=== PATIENT | female | born 1990 | race Caucasian/White ===

== ENCOUNTER 2017-01-02 09:57 | Inpatient (IN) | payer OTHER ==
[~2017-01-02 09:57] MED LIST: KEPP10002 PO
[2017-01-02] MEDS ORDERED: SODIUM CHLORIDE 0.9% FLUSH 10 ML FLUSH IV FLUSH PRN (13:45)
[2017-01-02] MEDS ORDERED: MAGNESIUM HYDROXIDE SUSP 30 ML CUP PO PRN (13:45)
[2017-01-02] MEDS ORDERED: ACETAMINOPHEN 325 MG TAB PO PRN (13:45)
[2017-01-02] MEDS ORDERED: NALOXONE HCL 0.4 MG/ML AMP IV PUSH PRN (13:45)
[2017-01-02] MEDS ORDERED: MORPHINE SULFATE 2 MG/ML INJ IV PUSH PRN (13:45)
--- NOTE | 2017-01-02 14:52 | PD.CONS ---
HPI History of Present Illness This is a 26 year old female with hx seizures, gastroparesis who presented with abd pain. Moving makes the pain worse. 1x episode n/v. No diarrhea or constipation or hx diverticulitis. No blood in vomit or stool, no fever. She has gastroparesis diagnosed by [facility] within the last year. SHe has had an EGD earlier this year, she cannot recall exact findings but it led to ordering of a [facility]. Never had colonoscopy. (Krysta Pryor) PFSH Past Medical History seizures Past Surgical History excision skin ca (Krysta Pryor) Coded Allergies: naproxen (Verified Allergy, Severe, SWELLING, 01/02/17) sumatriptan (Verified Allergy, Severe, SWELLING, 01/02/17) Sulfa (Sulfonamide Antibiotics) (Unverified Allergy, Unknown, Anaphylaxis , 01/02/17) Family History gastric ca Social History rare ETOH no tobacco use or illicit drug use (Krysta Pryor) Review of Systems Constitutional: DENIES: Fever Eyes: DENIES: Blurred vision Ears, nose, mouth, throat: DENIES: Hearing loss Respiratory: DENIES: Hemoptysis Cardiovascular: DENIES: Chest pain Gastrointestinal: COMPLAINS OF: Abdominal pain, Nausea, Vomiting, DENIES: Black stools, Bloody stools, Constipation, Diarrhea Genitourinary: DENIES: Hematuria Musculoskeletal: DENIES: Joint Swelling Integumentary: DENIES: Pruritus Hematologic/lymphatic: DENIES: Bruising Neurologic: DENIES: Abnormal gait Psychiatric: DENIES: Confusion (Krysta Pryor) GI Exam Physical Examination HEENT: PERRL; normocephalic; atraumatic; no jaundice. CHEST: CTA. CARDIAC: RRR ABDOMEN: Soft, nondistended, lower quadrant TTP; no hepatosplenomegaly; bowel sounds are present in all four quadrants. EXTREMITIES: No clubbing, cyanosis, or edema. SKIN: Normal; no rash; no jaundice. REMOTE SENSING ANALYST: No focal deficits; alert and oriented times three. (Krysta Pryor) Assessment and Plan Plan ASSESSMENT - abd pain - diverticulitis. CT showing cecal diverticulitis. PLAN - flagyl, levaquin - pain mgmt - IVF - NPO for now - further recs to follow This pt seen by myself and Dr Higgins and this note is written on his behalf (Krysta Pryor) Plan Patient was seen and examined, agree with above-noted and plan, having significant pain, diverticulitis and CT scan, we'll plan on antibiotics and pain management, she will need colonoscopy as an outpatient Patient also has history of gastroparesis, questionable etiology, recommend small meals when clear to eat since she is nothing by mouth for now, follow up with her ring conductor as an outpatient (Elana Higgins MD) Krysta Pryor Jan 02, 2017 14:52 Elana Higgins MD Jan 02, 2017 19:30
[2017-01-02] MEDS: SODIUM CHLOR 0.9% 1000 ML INJ 1,000 ML IV SCH (15:16)
--- NOTE | 2017-01-02 15:35 | HHI.HP ---
HPI Service [facility] Hospitalists Primary Care Physician Chava Napoles D.O. Admission Diagnosis Chief Complaint: abdominal pain Travel History International Travel<30 Days: No Contact w/Intl Traveler <30 Da: No Traveled to Known Affected Are: No History of Present Illness This is a 26 year old female with a past medical history which includes seizure disorder and gastroparesis. Patient presented to [facility] ER for evaluation of severe right lower quadrant abdominal pain that began around 5:00 this morning (01/02) patient states the pain radiates around to her back. Patient's vomited one time, there was no blood or black coffee ground appearance to the vomitions material. Patient states she had a bowel movement with no relief of her abdominal pain. Patient reported constant pain 8 out of 10. Patient endorses abdomen bloating and distention. Her last menstrual period was December 13, 2016. Patient denies urinary symptoms or vaginal discharge. Patient has recent diagnosis of gastroparesis by [facility] by GI physician in [place]. She had an EGD earlier this year, never had colonoscopy. Review of Systems Constitutional: DENIES: Fatigue, Fever, Chills Eyes: DENIES: Blurred vision, Diplopia, Vision loss Respiratory: DENIES: Cough, Sputum production, Shortness of breath Cardiovascular: DENIES: Chest pain, Palpitations, Dyspnea on Exertion, Lower Extremity Edema Gastrointestinal: COMPLAINS OF: Abdominal pain, Nausea, Vomiting, DENIES: Constipation, Diarrhea Neurologic: COMPLAINS OF: Seizures (history), DENIES: Abnormal gait, Headache, Localized weakness Psychiatric: DENIES: Anxiety, Confusion, Depression Past Family Social History Past Medical History seizure disorder gastroparesis Past Surgical History excision skin ca Reported Medications Keppra (Levetiracetam) 1,000 Mg Tab 1,000 Mg PO BID Allergies: Coded Allergies: naproxen (Verified Allergy, Severe, SWELLING, 01/02/17) sumatriptan (Verified Allergy, Severe, SWELLING, 01/02/17) Sulfa (Sulfonamide Antibiotics) (Unverified Allergy, Unknown, Anaphylaxis , 01/02/17) Active Ordered Medications Current Medications Medications (Trade) Dose Ordered Sig/Kobi Route Start Time Stop Time Status Last Admin Sodium Chloride 1,000 ml @ 75 mls/hr [id number] IV 01/02/17 13:37 01/02/17 15:16 (NS Flush) 2 ml UNSCH PRN IV FLUSH 01/02/17 13:45 (NS Flush) 2 ml BID IV FLUSH 01/02/17 21:00 (Tylenol) 650 mg Q4H PRN PO 01/02/17 13:45 (Zofran Inj) 4 mg Q6H PRN IVP 01/02/17 13:45 (Narcan Inj) 0.4 mg UNSCH PRN IV PUSH 01/02/17 13:45 (Ilana-Colace) 1 tab BID PO 01/02/17 21:00 (Milk Of Magnesia Liq) 30 ml Q12H PRN PO 01/02/17 13:45 ([place] 5-325 Mg) 1 tab Q4H PRN PO 01/02/17 13:45 (Morphine Inj) 2 mg Q4H PRN IV PUSH 01/02/17 13:45 01/02/17 15:05 (Keppra) 1,000 mg BID PO 01/02/17 21:00 Levofloxacin/ Dextrose 150 ml @ 100 mls/hr Q24H IV 01/02/17 17:00 Metronidazole 100 ml @ 100 mls/hr Q8H IV 01/02/17 17:00 Family History gastric ca Social History rare ETOH no tobacco use or illicit drug use Physical Exam Physical Exam GENERAL: This is a well-nourished, well-developed patient, in no apparent distress. SKIN: No rashes, ecchymoses or lesions. Cool and dry. HEAD: Atraumatic. Normocephalic. No temporal or scalp tenderness. EYES: Extraocular motions intact. No scleral icterus. No injection or drainage. ENT: Nose without bleeding, purulent drainage or septal hematoma. Throat without erythema, tonsillar hypertrophy or exudate. Uvula midline. Airway patent. NECK: Trachea midline. No JVD or lymphadenopathy. Supple, nontender, no meningeal signs. CARDIOVASCULAR: Regular rate and rhythm RESPIRATORY: Clear to auscultation. Breath sounds equal bilaterally. GASTROINTESTINAL: Abdomen soft, nondistended. Normoactive bowel sounds. Tender to palpation right lower quadrant. MUSCULOSKELETAL: Extremities without clubbing, cyanosis, or edema. No joint tenderness, effusion, or edema noted. No calf tenderness. Negative Homans sign bilaterally. NEUROLOGICAL: Awake and alert. No focal deficits noted. Motor and sensory grossly within normal limits. Five out of 5 muscle strength in all muscle groups. Normal speech. Caprini VTE Risk Assessment Caprini VTE Risk Assessment: No/Low Risk (score <= 1) Caprini Risk Assessment Model Point Value = 1 Point Value = 2 Point Value = 3 Point Value = 5 Age 41-60 Minor surgery BMI > 25 kg/m2 Swollen legs Varicose veins or History of unexplained or recurrent spontaneous Oral contraceptives or hormone replacement Sepsis (< 1 month) Serious lung disease, including pneumonia (< 1 month) Abnormal pulmonary function Acute myocardial infarction Congestive heart failure (< 1 month) History of inflammatory bowel disease Medical patient at bed rest Age 61-74 Arthroscopic surgery Major open surgery (> 45 min) Laparoscopic surgery (> 45 min) Malignancy Confined to bed (> 72 hours) Immobilizing plaster cast Central venous access Age >= 75 History of VTE Family history of VTE Factor V Leiden Prothrombin [id number] Lupus anticoagulant Anticardiolipin antibodies Elevated serum homocysteine Heparin-induced thrombocytopenia Other congenital or acquired thrombophilia Stroke (< 1 month) Elective arthroplasty Hip, pelvis, or leg fracture Acute spinal cord injury (< 1 month) Prophylaxis Regimen Total Risk Factor Score Risk Level Prophylaxis Regimen 0-1 Low Early ambulation 2 Moderate Order ONE of the following: *Sequential Compression Device (SCD) *Heparin 5000 units SQ BID 3-4 Higher Order ONE of the following medications: *Heparin 5000 units SQ TID *Enoxaparin/Lovenox 40 mg SQ daily (WT < 150 kg, CrCl > 30 mL/min) *Enoxaparin/Lovenox 30 mg SQ daily (WT < 150 kg, CrCl > 10-29 mL/min) *Enoxaparin/Lovenox 30 mg SQ BID (WT < 150 kg, CrCl > 30 mL/min) AND/OR *Sequential Compression Device (SCD) 5 or more Highest Order ONE of the following medications: *Heparin 5000 units SQ TID (Preferred with Epidurals) *Enoxaparin/Lovenox 40 mg SQ daily (WT < 150 kg, CrCl > 30 mL/min) *Enoxaparin/Lovenox 30 mg SQ daily (WT < 150 kg, CrCl > 10-29 mL/min) *Enoxaparin/Lovenox 30 mg SQ BID (WT < 150 kg, CrCl > 30 mL/min) AND *Sequential Compression Device (SCD) Assessment and Plan Problem List: (1) Cecal diverticulitis ICD Codes: K57.32 - Diverticulitis of large intestine without perforation or abscess without bleeding Plan: This is a 26 year old female with a past medical history which includes seizure disorder and gastroparesis. Patient presented to [facility] ER for evaluation of severe right lower quadrant abdominal pain vomiting x1. Abdominal pain Cecal diverticulitis NPO, bowel rest Flagyl and Levaquin IV consult GI Morphine IV and norco PO as needed for pain repeat labs in AM Seizure disorder continue home keppra 1000mg PO BID DVT prophylaxis with SCDs (2) Abdominal pain ICD Codes: R10.9 - Unspecified abdominal pain (3) Seizure disorder ICD Codes: G40.909 - Epilepsy, unspecified, not intractable, without status epilepticus Assessment and Plan Patient examined. Assessment and plan formulated with Halley Partida PA-C. I agree with the above. Halley Partida Jan 02, 2017 15:35 Deondre Weston DO Jan 06, 2017 22:13
[2017-01-02] MEDS ORDERED: metroNIDAZOLE 500 MG INJ 100 ML IV SCH (16:00)
[2017-01-02 16:10] VITALS: BP 101/56; PULSE 84; RESP 20; TEMP 98.2; O2SAT 97
[2017-01-02] MEDS: metroNIDAZOLE 500 MG INJ 100 ML IV SCH (16:44)
[2017-01-02] MEDS ORDERED: LEVOFLOXACIN 750 MG PREMIX INJ 150 ML IV SCH (17:00)
[2017-01-02 19:53] VITALS: BP 112/55; PULSE 81; RESP 19; TEMP 98.8; O2SAT 99
[2017-01-02] MEDS: HYDROmorphone HCL PF 0.5 MG/0.5 ML SYRINGE IV PUSH PRN (19:55)
[2017-01-02] MEDS: SODIUM CHLORIDE 0.9% FLUSH 10 ML FLUSH IV FLUSH SCH (21:00)
[2017-01-02] MEDS ORDERED: DOCUSATE SODIUM 50 MG/SENNA 8.6 MG TAB PO SCH (21:00)
[2017-01-02] MEDS: levETIRAcetam 500 MG TAB PO SCH (22:28)
[2017-01-02] MEDS: DOCUSATE SODIUM 100 MG CAP PO SCH (22:28)
[2017-01-03] VITALS (7 sets, daily range): BP systolic 88–126; BP diastolic 53–83; PULSE 66–98; RESP 18–24; TEMP 98.1–99.5; O2SAT 97–100
[2017-01-03] MEDS: HYDROmorphone HCL PF 0.5 MG/0.5 ML SYRINGE IV PUSH PRN ×4 (00:32→20:08)
[2017-01-03] MEDS: metroNIDAZOLE 500 MG INJ 100 ML IV SCH ×3 (00:34→17:25)
[2017-01-03] MEDS: SODIUM CHLOR 0.9% 1000 ML INJ 1,000 ML IV SCH ×2 (03:14→20:06)
[2017-01-03] MEDS: SODIUM CHLORIDE 0.9% FLUSH 10 ML FLUSH IV FLUSH SCH ×2 (08:20→20:11)
[2017-01-03] MEDS: DOCUSATE SODIUM 100 MG CAP PO SCH ×2 (08:20→20:06)
[2017-01-03] MEDS: LEVOFLOXACIN 750 MG PREMIX INJ 150 ML IV SCH (08:20)
[2017-01-03] MEDS: levETIRAcetam 500 MG TAB PO SCH ×2 (08:20→20:07)
[2017-01-03] MEDS: ONDANSETRON HCL 4 MG/2 ML VIAL IVP PRN (08:25)
[2017-01-03 08:39] LABS: BASOPHIL # 0.1 TH/MM3 (0-0.2); BASOPHIL % 0.4 % (0.0-2.0); EOSINOPHIL # 0.1 TH/MM3 (0-0.4); EOSINOPHIL % 0.8 % (0.0-4.0); HEMATOCRIT 36.9 % (35.0-46.0); HEMO FLAGS DIFF FINAL; LYMPH % 7.3 % (9.0-44.0); LYMPHOCYTE # 1.1 TH/MM3 (1.0-4.8); MEAN CELL VOLUME 86.7 FL (80.0-100.0); MEAN CORPUSCULAR HEMOGLOBIN 29.7 PG (27.0-34.0); MEAN CORPUSCULAR HGB CONC 34.3 % (32.0-36.0); MONO % 4.6 % (0.0-8.0); NEUT % 86.9 % (16.0-70.0); PLATELET COUNT 210 TH/MM3 (150-450); RED BLOOD COUNT 4.26 MIL/MM3 (4.00-5.30); RED CELL DISTRIBUTION WIDTH 12.7 % (11.6-17.2); WHITE BLOOD COUNT 14.9 TH/MM3 (4.0-11.0)
[2017-01-03 09:40] LABS: POTASSIUM 3.5 MEQ/L (3.5-5.1)
[2017-01-03 09:44] LABS: BICARBONATE 18.9 MEQ/L (21.0-32.0)
[2017-01-03] MEDS: ACETAMINOPHEN/HYDROcodone 325 MG/5 MG TAB PO PRN ×2 (11:05→22:59)
--- NOTE | 2017-01-03 12:31 | HHI.GIFU ---
Subjective Remarks Feeling slight improvement from yesterday, no N/V Objective Vitals I&O Vital Signs Date Time Temp Pulse Resp B/P (MAP) Pulse Ox O2 Delivery O2 Flow Rate FiO2 01/03/17 11:40 98.7 95 22 88/53 (65) 98 01/03/17 08:00 98.3 66 24 126/83 (97) 97 01/03/17 07:54 99.5 97 22 94/54 (67) 97 01/03/17 05:04 98.8 98 18 106/58 (74) 98 01/03/17 00:21 98.1 96 18 102/57 (72) 97 01/02/17 20:28 16 01/02/17 19:53 98.8 81 19 112/55 (74) 99 01/02/17 16:10 98.2 84 20 101/56 (71) 97 01/02/17 16:08 20 I/O 01/02/17 01/02/17 01/02/17 01/03/17 01/03/17 01/03/17 07:00 15:00 23:00 07:00 15:00 23:00 # Voids 1 Laboratory Laboratory Tests Test 01/03/17 07:20 01/03/17 07:28 Blood Urea Nitrogen 9 Creatinine 0.57 Random Glucose 62 Calcium Level 8.4 Sodium Level 137 Potassium Level 3.5 Chloride Level 105 Carbon Dioxide Level 18.9 Anion Gap 13 Estimat Glomerular Filtration Rate 129 White Blood Count 14.9 Red Blood Count 4.26 Hemoglobin 12.6 Hematocrit 36.9 Mean Corpuscular Volume 86.7 Mean Corpuscular Hemoglobin 29.7 Mean Corpuscular Hemoglobin Concent 34.3 Red Cell Distribution Width 12.7 Platelet Count 210 Mean Platelet Volume 9.4 Neutrophils (%) (Auto) 86.9 Lymphocytes (%) (Auto) 7.3 Monocytes (%) (Auto) 4.6 Eosinophils (%) (Auto) 0.8 Basophils (%) (Auto) 0.4 Neutrophils # (Auto) 13.0 Lymphocytes # (Auto) 1.1 Monocytes # (Auto) 0.7 Eosinophils # (Auto) 0.1 Basophils # (Auto) 0.1 CBC Comment DIFF FINAL Differential Comment Physical Exam HEENT: Pupils round and reactive to light; normocephalic; atraumatic; no jaundice. Throat is clear. NECK: Neck is supple, no JVD, no lymphadenopathy. CHEST: Chest is clear to auscultation and percussion. CARDIAC: Regular rate and rhythm with no murmur gallop or rubs. ABDOMEN: Tenderness all over but more prominent at RLQ area, no rigidity or rebound. EXTREMITIES: No clubbing, cyanosis, or edema. SKIN: Normal; no rash; no jaundice. LAG SCREWER: No focal deficits; alert and oriented times three. Assessment and Plan Plan ASSESSMENT - Abd pain - diverticulitis. CT showing cecal diverticulitis, slight improvement on IV Antibiotics PLAN - Continue - Clear liquid dietflagyl, levaquin - Pain mgmt - CBC/diff - Further recommendations to follow. Elza Malave MD Jan 03, 2017 12:31
--- NOTE | 2017-01-03 16:16 | HHI.PR ---
Subjective Remarks Pt c/o continued abdominal pain unrelieved after Dilaudid 0.5mg Objective Vitals Vital Signs Date Time Temp Pulse Resp B/P (MAP) Pulse Ox O2 Delivery O2 Flow Rate FiO2 01/03/17 11:40 98.7 95 22 88/53 (65) 98 01/03/17 08:00 98.3 66 24 126/83 (97) 97 01/03/17 07:54 99.5 97 22 94/54 (67) 97 01/03/17 05:04 98.8 98 18 106/58 (74) 98 01/03/17 00:21 98.1 96 18 102/57 (72) 97 01/02/17 20:28 16 01/02/17 19:53 98.8 81 19 112/55 (74) 99 Result Diagram: 01/03/1728 01/03/17 0720 Objective Remarks GENERAL: uncomfortable d/t abdominal pain CARDIOVASCULAR: Regular rate and rhythm without murmurs, gallops, or rubs. RESPIRATORY: Clear to auscultation. Breath sounds equal bilaterally. No wheezes , rales, or rhonchi. GASTROINTESTINAL: +BS x 4, pain on palpation at RLQ MUSCULOSKELETAL: Extremities without clubbing, cyanosis, or edema. NEURO: Alert & Oriented x4 to person, place, time, situation. Moves all ext x4 A/P Problem List: (1) Cecal diverticulitis ICD Codes: K57.32 - Diverticulitis of large intestine without perforation or abscess without bleeding Plan: - comgmt with GI - pt admitted thru the [place] ER. - Pt awoke on morning of presentation with severe RLQ abdominal pain, worse with movements, and driving over bumps - pt states h/o gastroparesis - CT abd/pelvis (01/01) --> cecal diverticulitis - Case reviewed with radiology department (01/03). - cecal diverticulitis - does NOT appear to have abnormal appendix - clear diet - continue Flagyl and Levaquin IV - Case d/w General Surgery, Dr. Saucedo. He will consult. - norco/diluadid prn pain - repeat labs in AM - supportive care - DVT prophylaxis (2) Abdominal pain ICD Codes: R10.9 - Unspecified abdominal pain Plan: - see above (3) Seizure disorder ICD Codes: G40.909 - Epilepsy, unspecified, not intractable, without status epilepticus Plan: - continue Deondre Degroot DO Jan 03, 2017 16:15
[2017-01-03] MEDS ORDERED: HYDROmorphone HCL PF 1 MG/ML VIAL IV PUSH ONE (16:30)
[2017-01-04] VITALS (7 sets, daily range): BP systolic 84–108; BP diastolic 49–70; PULSE 62–99; RESP 16–18; TEMP 97.3–100.8; O2SAT 97–100
[2017-01-04] MEDS: metroNIDAZOLE 500 MG INJ 100 ML IV SCH ×3 (00:33→16:25)
[2017-01-04] MEDS: HYDROmorphone HCL PF 0.5 MG/0.5 ML SYRINGE IV PUSH PRN ×6 (00:33→21:12)
[2017-01-04] MEDS: ONDANSETRON HCL 4 MG/2 ML VIAL IVP PRN ×2 (04:44→10:55)
[2017-01-04 04:47] LABS: BICARBONATE 23.8 MEQ/L (21.0-32.0)
[2017-01-04 05:05] LABS: HEMATOCRIT 35.1 % (35.0-46.0); MEAN CELL VOLUME 86.6 FL (80.0-100.0); MEAN CORPUSCULAR HEMOGLOBIN 30.4 PG (27.0-34.0); MEAN CORPUSCULAR HGB CONC 35.2 % (32.0-36.0); PLATELET COUNT 199 TH/MM3 (150-450); RED BLOOD COUNT 4.05 MIL/MM3 (4.00-5.30); RED CELL DISTRIBUTION WIDTH 12.5 % (11.6-17.2); REVIEW FLAG FINAL; WHITE BLOOD COUNT 15.2 TH/MM3 (4.0-11.0)
[2017-01-04] MEDS: SODIUM CHLOR 0.9% 1000 ML INJ 1,000 ML IV SCH ×2 (05:37→15:51)
[2017-01-04] MEDS: LEVOFLOXACIN 750 MG PREMIX INJ 150 ML IV SCH (08:55)
[2017-01-04] MEDS: SODIUM CHLORIDE 0.9% FLUSH 10 ML FLUSH IV FLUSH SCH ×3 (08:56→21:00)
[2017-01-04] MEDS: levETIRAcetam 500 MG TAB PO SCH ×2 (08:56→21:08)
[2017-01-04] MEDS: DOCUSATE SODIUM 100 MG CAP PO SCH ×2 (08:56→21:08)
[2017-01-04] MEDS ORDERED: BUPIVACAINE/EPINEPHRINE 0.25% PF 10 ML VIAL ONE (13:30)
[2017-01-04] MEDS ORDERED: ACETAMINOPHEN/HYDROcodone 325 MG/5 MG TAB PO PRN (14:30)
[2017-01-04] MEDS ORDERED: ONDANSETRON HCL 4 MG/2 ML VIAL IV PUSH PRN (14:30)
[2017-01-04] MEDS ORDERED: Post-op Orders (for Pharmacy) MISC XX ONE (14:30)
[2017-01-04] MEDS ORDERED: MAGNESIUM HYDROXIDE SUSP 30 ML CUP PO PRN (14:30)
[2017-01-04] MEDS ORDERED: SODIUM CHLORIDE 0.9% FLUSH 10 ML FLUSH IV FLUSH PRN (14:30)
[2017-01-04] MEDS ORDERED: MORPHINE SULFATE 4 MG/ML INJ IV PUSH PRN (14:30)
[2017-01-04] MEDS ORDERED: metroNIDAZOLE 500 MG INJ 100 ML IV SCH (14:30)
[2017-01-04] MEDS ORDERED: DO NOT ADM ANY ANTICOAGULANT DRUGS PRN (14:43)
[2017-01-04] MEDS ORDERED: *HYDROmorphone PF 1 MG VIAL PERIprocedural Use ONLY ONE (15:01)
--- NOTE | 2017-01-04 15:28 | MB ---
cc: [facility] DATE OF CONSULTATION: 01/04/2017. REASON FOR CONSULTATION: Questionable ruptured appendix. HISTORY OF PRESENT ILLNESS: This is a 26-year-old patient with history of seizure disorder who presented to the [facility] with a complaint of abdominal pain. The pain was located in the right lower quadrant. The patient states the pain started in that region and persisted in that region. She had a CT scan at that institution which revealed inflammation around the cecum. She was transferred to [facility] for further management. The patient was felt to be getting worse on abdominal exam and surgical consult was requested. The patient states the pain is worse today. She states she vomited on the day prior. She has had no change in bowel habits. She is passing gas. No urinary symptoms. No fevers or chills. PAST MEDICAL HISTORY: Her past medical history is significant for the above as well as: 1. Gastroparesis. ALLERGIES: 1. NAPROXEN. 2. SUMATRIPTAN. 3. SULF. SOCIAL HISTORY: She does not smoke. She drinks alcohol occasionally. FAMILY HISTORY: Noncontributory. REVIEW OF SYSTEMS: Review of systems significant for above. All other 10-point review negative. PHYSICAL EXAMINATION: GENERAL: The patient is laying in bed in distress secondary to pain. HEAD, EYES, EARS, NOSE, THROAT: Her pupils are equal and reactive. NECK: Trachea is midline. LUNGS: Respirations clear. CARDIOVASCULAR: Regular. GASTROINTESTINAL: Soft, positive tenderness in the lower abdomen. MUSCULOSKELETAL: No deformities. NEUROLOGIC: Nonfocal. LABORATORY STUDIES: The patient's white blood cell count is 14.9. ASSESSMENT: This is a patient with findings diverticulitis of the cecum. RECOMMENDATIONS / PLAN: The patient is currently on IV antibiotics. Will continue course of therapy. If the patient has not shown any improvement, will take her to the operating room in the a.m. for laparoscopy to evaluate for the masking pathology. Will keep the patient NPO. MD MARIELA Simons/ORACIO /2:42 PM /3:22 PM
[2017-01-04] MEDS: D5-NS + KCL 20 MEQ INJ 1,000 ML IV SCH (15:30)
--- NOTE | 2017-01-04 15:48 | HHI.GIFU ---
Subjective Remarks Resting in bed. Reports continued abdominal discomfort. (Ivonne Manning) Objective Vitals I&O Vital Signs Date Time Temp Pulse Resp B/P (MAP) Pulse Ox O2 Delivery O2 Flow Rate FiO2 01/04/17 15:15 80 12 105/60 (75) 99 Nasal Cannula 2 01/04/17 15:00 96 16 106/60 (75) 100 Nasal Cannula 2 01/04/17 14:45 100 14 109/57 (74) 100 Nasal Cannula 2 01/04/17 14:41 98.4 111 14 114/66 (82) 100 Nasal Cannula 2 01/04/17 12:00 98.1 99 16 94/53 (67) 99 01/04/17 08:00 98.5 99 17 98/56 (70) 97 01/04/17 04:53 100.4 99 18 100/60 (73) 100 01/04/17 00:49 100.8 99 18 108/70 (83) 99 01/03/17 20:45 14 01/03/17 20:24 98.7 93 18 102/55 (71) 99 01/03/17 16:29 98.9 84 24 117/65 (82) 100 I/O 01/03/17 01/03/17 01/03/17 01/04/17 01/04/17 01/04/17 07:00 15:00 23:00 07:00 15:00 23:00 Intake Total 3400 ml 100 ml 1950 ml Output Total 1200 ml 400 ml Balance 2200 ml 100 ml 1550 ml Intake Oral 750 ml IV Total 2650 ml 100 ml 1250 ml Other 700 ml Output Urine Total 1200 ml 400 ml Other 0 ml # Voids 1 2 Laboratory Laboratory Tests Test 01/04/17 03:23 White Blood Count 15.2 Red Blood Count 4.05 Hemoglobin 12.3 Hematocrit 35.1 Mean Corpuscular Volume 86.6 Mean Corpuscular Hemoglobin 30.4 Mean Corpuscular Hemoglobin Concent 35.2 Red Cell Distribution Width 12.5 Platelet Count 199 Mean Platelet Volume 9.4 Blood Urea Nitrogen 8 Creatinine 0.53 Random Glucose 69 Calcium Level 8.2 Sodium Level 139 Potassium Level 4.0 Chloride Level 106 Carbon Dioxide Level 23.8 Anion Gap 9 Estimat Glomerular Filtration Rate 141 Physical Exam HEENT: Normocephalic; atraumatic; no jaundice. NECK: Neck is supple CHEST: Chest is clear to auscultation and percussion. CARDIAC: RRR ABDOMEN: Tenderness all over but more prominent at RLQ area, no rigidity or rebound. EXTREMITIES: No clubbing, cyanosis, or edema. SKIN: Normal; no rash; no jaundice. ELECTRONIC COURT RECORDER: No focal deficits; alert and oriented times three. (Ivonne Manning) Assessment and Plan Plan ASSESSMENT - Cecal Diverticulitis, right lower quadrant abdominal pain. WBC 15.2. Afebrile. CT Abdomen/Pelvis (01/02/17)--1. The patient's right lower quadrant pain is caused by a mild cecal diverticulitis. There is a 3 cm diverticulum arising from the cecum which demonstrates mild inflammation. 2. Trace free fluid in the pelvis could be physiologic or could be related to the inflammatory process. 3. Stable 2 mm nonobstructing left renal stone.. Patient reports history of gastropareses. GS consulted for evaluation of questionable ruptured appendix, who states if patient does not show any improvement will take her to OR in a.m. for laparoscopy to evaluate. Zosyn, Levaquin PLAN - NPO - Continue IV Zosyn, Levaquin - Pain management - Monitor labs - GS following - Supportive care - Further recommendations to follow based on the results of above Patient seen and examined by Dr. Malave and myself and this note is written on his behalf. (Ivonne Manning) Physician Comments Minimal improvement and for surgical treatment today. Will sign off for now, please notify us if needed. (Elza Malave MD) Ivonne Manning Jan 04, 2017 15:48 Elza Malave MD Jan 04, 2017 23:16
[2017-01-04] MEDS: PIPERACIL-TAZO 3.375 GM PREMIX 50 ML IV SCH ×2 (16:25→21:08)
--- NOTE | 2017-01-04 16:27 | HHI.PR ---
Subjective Remarks Pt comfortable with pain medications. Objective Vitals Vital Signs Date Time Temp Pulse Resp B/P (MAP) Pulse Ox O2 Delivery O2 Flow Rate FiO2 01/04/17 15:30 98.5 85 16 100/58 (72) 96 Room Air 01/04/17 15:15 80 12 105/60 (75) 99 Nasal Cannula 2 01/04/17 15:00 96 16 106/60 (75) 100 Nasal Cannula 2 01/04/17 14:45 100 14 109/57 (74) 100 Nasal Cannula 2 01/04/17 14:41 98.4 111 14 114/66 (82) 100 Nasal Cannula 2 01/04/17 12:00 98.1 99 16 94/53 (67) 99 01/04/17 08:00 98.5 99 17 98/56 (70) 97 01/04/17 04:53 100.4 99 18 100/60 (73) 100 01/04/17 00:49 100.8 99 18 108/70 (83) 99 01/03/17 20:45 14 01/03/17 20:24 98.7 93 18 102/55 (71) 99 01/03/17 16:29 98.9 84 24 117/65 (82) 100 01/04/17 01/04/17 01/05/17 15:00 23:00 07:00 Intake Total 1950 ml 100 ml Output Total 400 ml 125 ml Balance 1550 ml -25 ml IV Total 1250 ml 100 ml Other 700 ml Output Urine Total 400 ml 125 ml Other 0 ml Result Diagram: 01/04/1732201/04/17 0323 Objective Remarks GENERAL: NAD CARDIOVASCULAR: Regular rate and rhythm without murmurs, gallops, or rubs. RESPIRATORY: Clear to auscultation. Breath sounds equal bilaterally. No wheezes , rales, or rhonchi. GASTROINTESTINAL: +BS x 4, pain on palpation at RLQ MUSCULOSKELETAL: Extremities without clubbing, cyanosis, or edema. NEURO: Alert & Oriented x4 to person, place, time, situation. Moves all ext x4 A/P Problem List: (1) Cecal diverticulitis ICD Codes: K57.32 - Diverticulitis of large intestine without perforation or abscess without bleeding Plan: - comgmt with GI - pt admitted thru the [place] ER. - Pt awoke on morning of presentation with severe RLQ abdominal pain, worse with movements, and driving over bumps - pt states h/o gastroparesis - CT abd/pelvis (01/01) --> cecal diverticulitis - Case reviewed with radiology department (01/03). - cecal diverticulitis - does NOT appear to have abnormal appendix - NPO - continue Flagyl and Levaquin IV - norco/diluadid prn pain - Pt underwent exploratory laparotomy with Dr. Saucedo () - no appendicitis - cecal diverticulitis - continue abx and pain mgmt as above - supportive care - DVT prophylaxis (2) Abdominal pain ICD Codes: R10.9 - Unspecified abdominal pain Plan: - see above (3) Seizure disorder ICD Codes: G40.909 - Epilepsy, unspecified, not intractable, without status epilepticus Plan: - continue Deondre Degroot DO Jan 04, 2017 16:27
--- NOTE | 2017-01-04 17:38 | MP ---
cc: FRED BLANC DATE OF SURGERY: 01/04/2017. PREOPERATIVE DIAGNOSIS: Questionable of Meckel's diverticulum versus ruptured appendix. POSTOPERATIVE DIAGNOSIS: Cecal diverticulitis. OPERATIVE PROCEDURE PERFORMED: Diagnostic laparoscopy. SURGEON: Fred Blanc MD. ANESTHESIA: General endotracheal anesthesia. ESTIMATED BLOOD LOSS: Scant. FINDINGS: Inflammation around the medial aspect of the base of the cecum. SPECIMENS: None. COMPLICATIONS: None. DESCRIPTION OF THE PROCEDURE IN DETAIL: The patient was brought to the operating room and placed on the operating table in the supine position. Bilateral sequential inflation devices were placed on the lower extremities. General anesthesia instituted. Taylor catheter placed. The abdomen was prepped and draped sterilely. A point in the left upper quadrant was anesthetized with 0.25% Marcaine with epinephrine. Skin incision was made. A 5 mm OptiVu port was placed under direct vision and a pneumoperitoneum created. Under direct vision, a 5 mm right upper quadrant and a 5 mm left lower quadrant port was placed. Prior to the placement of all ports, the skin and peritoneum were anesthetized with 0.25% Marcaine with epinephrine. The patient was placed in Trendelenburg position with the right side up. The pelvis was inspected. There was inflammation around the base of the cecum on the medial aspect. The appendix was visualized. There was no evidence of appendicitis. No evidence of abscess in the abdominal cavity. No evidence of necrosis or gangrene. At this point, the operation was terminated. The carbon dioxide was released and all ports were removed. All skin incisions were closed with 4-0 Monocryl. The abdominal wall was cleaned and a sterile dressing was placed. The patient was awakened and taken to the recovery room. MD MARIELA Simons/ORACIO /2:40 PM /5:37 PM
[2017-01-04] MEDS ORDERED: DOCUSATE SODIUM 100 MG CAP PO SCH (21:00)
[2017-01-05] VITALS (8 sets, daily range): BP systolic 92–111; BP diastolic 52–57; PULSE 58–81; RESP 16–18; TEMP 97–98.4; O2SAT 97–100
[2017-01-05] MEDS: D5-NS + KCL 20 MEQ INJ 1,000 ML IV SCH ×4 (01:42→20:09)
[2017-01-05] MEDS: metroNIDAZOLE 500 MG INJ 100 ML IV SCH ×3 (01:45→15:06)
[2017-01-05] MEDS: HYDROmorphone HCL PF 0.5 MG/0.5 ML SYRINGE IV PUSH PRN (01:45)
[2017-01-05] MEDS: PIPERACIL-TAZO 3.375 GM PREMIX 50 ML IV SCH ×4 (03:47→20:08)
[2017-01-05 05:20] LABS: AUTOMATED NEUTROPHIL # 11.7 TH/MM3 (1.8-7.7); BASOPHIL % 0.1 % (0.0-2.0); EOSINOPHIL % 0.1 % (0.0-4.0); HEMATOCRIT 32.7 % (35.0-46.0); HEMO FLAGS DIFF FINAL; LYMPH % 8.1 % (9.0-44.0); LYMPHOCYTE # 1.1 TH/MM3 (1.0-4.8); MEAN CELL VOLUME 85.4 FL (80.0-100.0); MEAN CORPUSCULAR HGB CONC 35.2 % (32.0-36.0); MONO % 5.3 % (0.0-8.0); NEUT % 86.4 % (16.0-70.0); PLATELET COUNT 206 TH/MM3 (150-450); RED BLOOD COUNT 3.83 MIL/MM3 (4.00-5.30); RED CELL DISTRIBUTION WIDTH 12.3 % (11.6-17.2); WHITE BLOOD COUNT 13.5 TH/MM3 (4.0-11.0)
[2017-01-05 05:36] LABS: BICARBONATE 23.5 MEQ/L (21.0-32.0); POTASSIUM 3.8 MEQ/L (3.5-5.1)
[2017-01-05] MEDS: SODIUM CHLOR 0.9% 1000 ML INJ 1,000 ML IV SCH ×2 (08:09→20:09)
[2017-01-05] MEDS: LEVOFLOXACIN 750 MG PREMIX INJ 150 ML IV SCH (08:09)
[2017-01-05] MEDS: SODIUM CHLORIDE 0.9% FLUSH 10 ML FLUSH IV FLUSH SCH ×4 (08:09→20:09)
[2017-01-05] MEDS: DOCUSATE SODIUM 100 MG CAP PO SCH ×2 (08:10→20:08)
[2017-01-05] MEDS: levETIRAcetam 500 MG TAB PO SCH ×2 (08:10→20:08)
--- NOTE | 2017-01-05 08:56 | HHI.PR ---
Subjective Subjective Notes states pain better no n/v no flatus Objective Vitals/I&O Vital Signs Date Time Temp Pulse Resp B/P (MAP) Pulse Ox O2 Delivery O2 Flow Rate FiO2 01/05/17 08:00 98.4 81 18 99/53 (68) 98 01/04/17 19:24 21 01/04/17 15:30 Room Air 01/04/17 15:15 2 Labs Laboratory Tests Test 01/05/17 03:45 White Blood Count 13.5 Red Blood Count 3.83 Hemoglobin 11.5 Hematocrit 32.7 Mean Corpuscular Volume 85.4 Mean Corpuscular Hemoglobin 30.0 Mean Corpuscular Hemoglobin Concent 35.2 Red Cell Distribution Width 12.3 Platelet Count 206 Mean Platelet Volume 9.6 Neutrophils (%) (Auto) 86.4 Lymphocytes (%) (Auto) 8.1 Monocytes (%) (Auto) 5.3 Eosinophils (%) (Auto) 0.1 Basophils (%) (Auto) 0.1 Neutrophils # (Auto) 11.7 Lymphocytes # (Auto) 1.1 Monocytes # (Auto) 0.7 Eosinophils # (Auto) 0.0 Basophils # (Auto) 0.0 CBC Comment DIFF FINAL Differential Comment Blood Urea Nitrogen 5 Creatinine 0.41 Random Glucose 133 Calcium Level 8.1 Sodium Level 138 Potassium Level 3.8 Chloride Level 108 Carbon Dioxide Level 23.5 Anion Gap 7 Estimat Glomerular Filtration Rate 189 Abdomen: Post-op tenderness Extremities: Perfused Wound Wound : Wound Location: Abdomen Appearance: Clean & Dry A/P Assessment and Plan s/p laparoscopy cecal diverticulitis cont abx bowel rest will need colonoscopy once inflammation subside Fred Blanc MD Jan 05, 2017 08:56
[2017-01-05] MEDS: ACETAMINOPHEN/HYDROcodone 325 MG/5 MG TAB PO PRN ×3 (09:43→20:09)
[2017-01-05] MEDS ORDERED: SIMETHICONE 125 MG CHEWABLE TAB PO PRN (12:00)
--- NOTE | 2017-01-05 12:04 | HHI.PR ---
Subjective Remarks Patient report pain RLQ is, "a little better." Patient main complaints now is pain through out abdomen into back and shoulders - consistent with gas pain reports flatus x 1 today denies N/V Objective Vitals Vital Signs Date Time Temp Pulse Resp B/P (MAP) Pulse Ox O2 Delivery O2 Flow Rate FiO2 01/05/17 09:22 100 21 01/05/17 08:00 98.4 81 18 99/53 (68) 98 01/05/17 04:00 97.2 58 18 94/54 (67) 97 01/05/17 02:15 18 01/05/17 00:00 98.0 67 18 92/52 (65) 97 01/04/17 20:00 98.1 62 18 108/64 (79) 97 01/04/17 19:24 97 21 01/04/17 16:00 97.3 89 17 107/55 (72) 97 01/04/17 15:30 98.5 85 16 100/58 (72) 96 Room Air 01/04/17 15:15 80 12 105/60 (75) 99 Nasal Cannula 2 01/04/17 15:00 96 16 106/60 (75) 100 Nasal Cannula 2 01/04/17 14:45 100 14 109/57 (74) 100 Nasal Cannula 2 01/04/17 14:41 98.4 111 14 114/66 (82) 100 Nasal Cannula 2 01/04/17 12:00 98.1 99 16 94/53 (67) 99 01/05/17 01/05/17 01/06/17 15:00 23:00 07:00 Intake Total 400 ml Balance 400 ml IV Total 400 ml Result Diagram: 01/05/17 0345 01/05/17 0345 Other Results Laboratory Tests Test 01/03/17 07:20 01/03/17 07:28 01/04/17 03:23 01/05/17 03:45 Blood Urea Nitrogen 9 MG/DL 8 MG/DL 5 MG/DL Creatinine 0.57 MG/DL 0.53 MG/DL 0.41 MG/DL Random Glucose 62 MG/DL 69 MG/DL 133 MG/DL Calcium Level 8.4 MG/DL 8.2 MG/DL 8.1 MG/DL Sodium Level 137 MEQ/L 139 MEQ/L 138 MEQ/L Potassium Level 3.5 MEQ/L 4.0 MEQ/L 3.8 MEQ/L Chloride Level 105 MEQ/L 106 MEQ/L 108 MEQ/L Carbon Dioxide Level 18.9 MEQ/L 23.8 MEQ/L 23.5 MEQ/L Anion Gap 13 MEQ/L 9 MEQ/L 7 MEQ/L Estimat Glomerular Filtration Rate 129 ML/MIN 141 ML/MIN 189 ML/MIN White Blood Count 14.9 TH/MM3 15.2 TH/MM3 13.5 TH/MM3 Red Blood Count 4.26 MIL/MM3 4.05 MIL/MM3 3.83 MIL/MM3 Hemoglobin 12.6 GM/DL 12.3 GM/DL 11.5 GM/DL Hematocrit 36.9 % 35.1 % 32.7 % Mean Corpuscular Volume 86.7 FL 86.6 FL 85.4 FL Mean Corpuscular Hemoglobin 29.7 PG 30.4 PG 30.0 PG Mean Corpuscular Hemoglobin Concent 34.3 % 35.2 % 35.2 % Red Cell Distribution Width 12.7 % 12.5 % 12.3 % Platelet Count 210 TH/MM3 199 TH/MM3 206 TH/MM3 Mean Platelet Volume 9.4 FL 9.4 FL 9.6 FL Neutrophils (%) (Auto) 86.9 % 86.4 % Lymphocytes (%) (Auto) 7.3 % 8.1 % Monocytes (%) (Auto) 4.6 % 5.3 % Eosinophils (%) (Auto) 0.8 % 0.1 % Basophils (%) (Auto) 0.4 % 0.1 % Neutrophils # (Auto) 13.0 TH/MM3 11.7 TH/MM3 Lymphocytes # (Auto) 1.1 TH/MM3 1.1 TH/MM3 Monocytes # (Auto) 0.7 TH/MM3 0.7 TH/MM3 Eosinophils # (Auto) 0.1 TH/MM3 0.0 TH/MM3 Basophils # (Auto) 0.1 TH/MM3 0.0 TH/MM3 CBC Comment DIFF FINAL DIFF FINAL Differential Comment Objective Remarks GENERAL: NAD CARDIOVASCULAR: Regular rate and rhythm without murmurs, gallops, or rubs. RESPIRATORY: Clear to auscultation. Breath sounds equal bilaterally. No wheezes , rales, or rhonchi. GASTROINTESTINAL: hypoactive BS x 4, pain on palpation at RLQ MUSCULOSKELETAL: Extremities without clubbing, cyanosis, or edema. NEURO: Alert & Oriented x4 to person, place, time, situation. Moves all ext x4 Procedures s/p exploratory laparoscopy 01/04/[address] Blanc A/P Problem List: (1) Cecal diverticulitis ICD Codes: K57.32 - Diverticulitis of large intestine without perforation or abscess without bleeding Plan: - comgmt with GI - pt admitted thru the [facility] ER. - Pt awoke on morning of presentation with severe RLQ abdominal pain, worse with movements, and driving over bumps - pt states h/o gastroparesis - CT abd/pelvis (01/01) --> cecal diverticulitis - Case reviewed with radiology department (01/03). - cecal diverticulitis - does NOT appear to have abnormal appendix - NPO - continue Flagyl and Levaquin IV - WBC trending down - norco/diluadid prn pain - Pt underwent exploratory laparotomy with Dr. Saucedo () - no appendicitis - cecal diverticulitis - continue abx and pain mgmt as above - add simethicone as need for gas retention, encourage ambulation - supportive care - DVT prophylaxis with SCDs - Patient reevaluated 01/05/[address] Renae. Patient feeling much better after ambulation. Patient now having flatus. - If patient continues to improve plan to DC tomorrow (2) Abdominal pain ICD Codes: R10.9 - Unspecified abdominal pain Plan: - see above (3) Seizure disorder ICD Codes: G40.909 - Epilepsy, unspecified, not intractable, without status epilepticus Plan: - continue kera Assessment and Plan Patient examined. Assessment and plan formulated with Halley Partida PA-C. I agree with the above. Halley Partida Jan 05, 2017 12:04 Deondre Weston DO Jan 06, 2017 22:11
[2017-01-05] MEDS ORDERED: ENOXAPARIN SODIUM 30 MG/0.3 ML SYRINGE SQ SCH (14:00)
[2017-01-05] MEDS ORDERED: LEVO500T8 PO (15:16)
[2017-01-05] MEDS ORDERED: METR-1 PO (15:16)
[2017-01-06] VITALS: BP 112/62; PULSE 74; RESP 18; TEMP 97.5; O2SAT 99
[2017-01-06] MEDS: metroNIDAZOLE 500 MG INJ 100 ML IV SCH ×2 (00:43→09:12)
[2017-01-06] MEDS: PIPERACIL-TAZO 3.375 GM PREMIX 50 ML IV SCH ×2 (03:11→09:12)
[2017-01-06] MEDS: D5-NS + KCL 20 MEQ INJ 1,000 ML IV SCH ×2 (03:12→09:12)
[2017-01-06] MEDS: ACETAMINOPHEN/HYDROcodone 325 MG/5 MG TAB PO PRN (03:32)
[2017-01-06 06:56] LABS: HEMATOCRIT 32.6 % (35.0-46.0); MEAN CELL VOLUME 85.1 FL (80.0-100.0); MEAN CORPUSCULAR HEMOGLOBIN 30.3 PG (27.0-34.0); MEAN CORPUSCULAR HGB CONC 35.6 % (32.0-36.0); PLATELET COUNT 216 TH/MM3 (150-450); RED BLOOD COUNT 3.84 MIL/MM3 (4.00-5.30); RED CELL DISTRIBUTION WIDTH 12.9 % (11.6-17.2); REVIEW FLAG FINAL; WHITE BLOOD COUNT 7.3 TH/MM3 (4.0-11.0)
[2017-01-06 08:00] VITALS: BP 92/55; PULSE 76; RESP 17; TEMP 97.6; O2SAT 97
[2017-01-06] MEDS: SODIUM CHLORIDE 0.9% FLUSH 10 ML FLUSH IV FLUSH SCH ×2 (09:00)
[2017-01-06] MEDS: LEVOFLOXACIN 750 MG PREMIX INJ 150 ML IV SCH (09:12)
[2017-01-06] MEDS: levETIRAcetam 500 MG TAB PO SCH (09:12)
[2017-01-06] MEDS: DOCUSATE SODIUM 100 MG CAP PO SCH (09:13)
[2017-01-06] MEDS ORDERED: HYDR-3516 PO (10:55)
[2017-01-06 12:00] VITALS: BP 105/57; PULSE 80; RESP 18; TEMP 96.4; O2SAT 100
--- NOTE | 2017-01-06 13:51 | HHI.DCPOC ---
Discharge Care Plan Diagnosis: (1) Abdominal pain (2) Cecal diverticulitis Goals to Promote Your Health * To prevent worsening of your condition and complications * To maintain your health at the optimal level Directions to Meet Your Goals Take your medications as prescribed Follow your dietary instruction Follow activity as directed Keep your appointments as scheduled Take your immunizations and boosters as scheduled If your symptoms worsen call your PCP, if no PCP go to Urgent Care Center or Emergency Room Smoking is Dangerous to Your Health. Avoid second hand smoke Call the 24-hour hour crisis hotline for domestic abuse at Halley Partida Jan 06, 2017 13:51 Deondre Weston DO Jan 06, 2017 22:13
--- NOTE | 2017-01-06 13:51 | HHI.DS ---
Discharge Summary Admission Date Jan 02, 2017 at 14:16 Discharge Date: Jan 06, 2017 Admitting Diagnosis cecal diverticulitis (1) Cecal diverticulitis ICD Codes: K57.32 - Diverticulitis of large intestine without perforation or abscess without bleeding (2) Abdominal pain ICD Codes: R10.9 - Unspecified abdominal pain (3) Seizure disorder ICD Codes: G40.909 - Epilepsy, unspecified, not intractable, without status epilepticus Consultants Dr. Guanaco Malave Procedures s/p exploratory laparoscopy 01/04/[address] Blanc Brief History This is a 26 year old female with a past medical history which includes seizure disorder and gastroparesis. Patient presented to [facility] ER for evaluation of severe right lower quadrant abdominal pain that began around 5:00 this morning (01/02) patient states the pain radiates around to her back. Patient's vomited one time, there was no blood or black coffee ground appearance to the vomitions material. Patient states she had a bowel movement with no relief of her abdominal pain. Patient reported constant pain 8 out of 10. Patient endorses abdomen bloating and distention. Her last menstrual period was December 13, 2016. Patient denies urinary symptoms or vaginal discharge. Patient has recent diagnosis of gastroparesis by [facility] by GI physician in [place]. She had an EGD earlier this year, never had colonoscopy. CBC/BMP: 01/06/17 0536 01/05/17 0345 Significant Findings Laboratory Tests Test 01/04/17 03:23 01/05/17 03:45 01/06/17 05:36 White Blood Count 15.2 TH/MM3 (4.0-11.0) 13.5 TH/MM3 (4.0-11.0) Random Glucose 69 MG/DL (74-106) 133 MG/DL (74-106) Calcium Level 8.2 MG/DL (8.5-10.1) 8.1 MG/DL (8.5-10.1) Red Blood Count 3.83 MIL/MM3 (4.00-5.30) 3.84 MIL/MM3 (4.00-5.30) Hemoglobin 11.5 GM/DL (11.6-15.3) Hematocrit 32.7 % (35.0-46.0) 32.6 % (35.0-46.0) Neutrophils (%) (Auto) 86.4 % (16.0-70.0) Lymphocytes (%) (Auto) 8.1 % (9.0-44.0) Neutrophils # (Auto) 11.7 TH/MM3 (1.8-7.7) Blood Urea Nitrogen 5 MG/DL (7-18) Creatinine 0.41 MG/DL (0.50-1.00) Chloride Level 108 MEQ/L (98-107) PE at Discharge GENERAL: NAD CARDIOVASCULAR: Regular rate and rhythm without murmurs, gallops, or rubs. RESPIRATORY: Clear to auscultation. Breath sounds equal bilaterally. No wheezes , rales, or rhonchi. GASTROINTESTINAL: hypoactive BS x 4, pain on palpation at RLQ MUSCULOSKELETAL: Extremities without clubbing, cyanosis, or edema. NEURO: Alert & Oriented x4 to person, place, time, situation. Moves all ext x4 Hospital Course Cecal diverticulitis - comgmt with GI - pt admitted thru the [facility]. - Pt awoke on morning of presentation with severe RLQ abdominal pain, worse with movements, and driving over bumps - pt states h/o gastroparesis - CT abd/pelvis (01/01) --> cecal diverticulitis - Case reviewed with radiology department (01/03). - cecal diverticulitis - does NOT appear to have abnormal appendix - NPO - continue Flagyl and Levaquin IV - WBC trending down - norco/diluadid prn pain - Pt underwent exploratory laparotomy with Dr. Saucedo () - no appendicitis - cecal diverticulitis - continue abx and pain mgmt as above - simethicone as need for gas retention, encourage ambulation - supportive care - DVT prophylaxis with SCDs Abdominal pain - see above Seizure disorder - continue keppra Pt Condition on Discharge: Stable Discharge Disposition: Discharge Home Discharge Instructions DIET: Follow Instructions for: As Tolerated, No Restrictions Activities you can perform: Regular-No Restrictions Follow up Referrals: Gastroenterology - 2 Weeks with Althea Shepard MD New Medications: Levofloxacin (Levofloxacin) 500 Mg Tablet 500 MG PO DAILY for Infection, #7 TAB 0 Refills Metronidazole (Flagyl) 500 Mg Tab 500 MG PO TID for Infection for 7 Days, #21 TAB 0 Refills Hydrocodone/Acetaminophen (Hydrocodone-Acetamin 5-325 mg) 5 Mg-325 Mg Tablet 1-2 TAB PO Q6HR PRN for pain, #30 TAB Continued Medications: Levetiracetam (Keppra) 1,000 Mg Tab 1000 MG PO BID for Control Seizures, #60 TAB 0 Refills Additional Information Patient examined. Assessment and plan formulated with Halley Partida PA-C. I agree with the above. Halley Partida Jan 06, 2017 13:51 Deondre Weston DO Jan 06, 2017 22:12
--- NOTE | 2017-01-06 15:28 | HHI.PR ---
Subjective Subjective Notes Pain improving. Mild discomfort right shoulder. Db fulls. Objective Vitals/I&O Vital Signs Date Time Temp Pulse Resp B/P (MAP) Pulse Ox O2 Delivery O2 Flow Rate FiO2 01/06/17 12:00 96.4 80 18 105/57 (73) 100 01/05/17 09:22 21 01/04/17 15:30 Room Air 01/04/17 15:15 2 Labs Laboratory Tests Test 01/06/17 05:36 White Blood Count 7.3 Red Blood Count 3.84 Hemoglobin 11.6 Hematocrit 32.6 Mean Corpuscular Volume 85.1 Mean Corpuscular Hemoglobin 30.3 Mean Corpuscular Hemoglobin Concent 35.6 Red Cell Distribution Width 12.9 Platelet Count 216 Mean Platelet Volume 9.5 Narrative Exam Abd: soft, ntd, inc c/d/i A/P Assessment and Plan S/p dx lap, cecal diverticulitis final dx. Improving. Clear for dc home. F/u with Dr. Blanc in two weeks. Zay,Dar LANGSTON Jan 06, 2017 15:28
[2017-01-06 16:00] VITALS: BP 99/56; PULSE 88; RESP 17; TEMP 97.4; O2SAT 99
== END 2017-01-06 16:39 | disposition home or self-care (01) | DRG 358 ==
LOC: NEDDLT 14:05 → NEPHCDU 14:16 → N07A 01-03 22:52
PROVIDERS: ADMIT Hospitalist; ATTEND Hospitalist
PROC: 0WJG4ZZ Inspection of Peritoneal Cavity, Percutaneous Endoscopic Approach (ICD-10-PCS; principal; 2017-01-04 13:44)
DX: K57.32 Diverticulitis of large intestine without perforation or abscess without bleeding (principal); K31.84 Gastroparesis; G40.909 Epilepsy, unspecified, not intractable, without status epilepticus; Z85.828 Personal history of other malignant neoplasm of skin
CPT/HCPCS: 74177; 80048; 80053; 81001; 83690; 84702; 85025; 85027; 94150; 96374; 96375; 96376; J1170; J1650; J1956; J2270; J2405; J2543; J3480; J7030; Q9967